=== PATIENT | female | born 1980 | race Two or more races ===

== ENCOUNTER 2025-07-17 12:54 | Emergency (ER) | payer BC, OTHER ==
[~2025-07-17] VITALS: Ht 157.5 cm; Wt 127.7 kg
[2025-07-17 13:38] LABS: Hematocrit 47.6 % (36.0-46.0); Hemoglobin 16.1 g/dL (12.2-16.2); Mean Corpuscular Hemoglobin 28.5 pg (28.0-32.0); Mean Corpuscular Volume 84.3 fL (80.0-100.0); Nucleated Red Blood Cells % 0.0 %
[2025-07-17 13:47] LABS: Chloride 104 mmol/L (98-107); Potassium 3.9 mmol/L (3.5-5.1); Sodium 140 mmol/L (136-145)
--- NOTE | 2025-07-17 13:47 | ED.PDOC ---
GI ASSESSMENT HPI Comments This is a 44 year old female presenting to the ED with chief complaint of abdominal pain. Patient reports that she has been dealing with treatment for a Bartholin cyst for the past month. Patient relays that she is still experiencing pain and bleeding at times to her cyst. Patient states that she then started experiencing an abscess to her suprapubic region a week ago, now healing after receiving Bactrim and Doxycycline. Patient notes since yesterday she has been experiencing sharp lower abdominal pain with associated nausea, sweats, SOB, fatigue, and increased vaginal pressure. Patient denies any vomiting, diarrhea, dysuria, hematuria, or vaginal bleeding. 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) Family History Family History: Reviewed,noncontributory to illness Social History Smoker: Non-Smoker Alcohol: Denies ETOH Use Drugs: Denies Drug Use Lives In: Home Constitutional: reports: fatigue, sweats; denies: chills, diaphoresis, fever, malaise, weakness, others EENTM: denies: blurred vision, double vision, ear bleeding, ear discharge, ear drainage, ear pain, ear ringing, eye pain, eye redness, hearing loss, mouth pain, mouth swelling, nasal discharge, nose bleeding, nose congestion, nose pain, photophobia, tearing, throat pain, throat swelling, voice changes, others Respiratory: reports: shortness of breath; denies: cough, hemoptysis, orthopnea, SOB at rest, SOB with excertion, stridor, wheezing, others Cardiovascular: denies: chest pain, dizzy spells, diaphoresis, Dyspnea on exertion, edema, irregular heart beat, left arm pain, lightheadedness, palpitations, PND, syncope, others Gastrointestinal: reports: abdominal pain, nausea, poor appetite; denies: abdomen distended, blood streaked bowels, constipated, diarrhea, dysphagia, difficulty swallowing, hematemesis, melena, poor fluid intake, rectal bleeding, rectal pain, vomiting, others Genitourinary: reports: others (Vaginal pressure); denies: abnormal vagina bleeding, burning, dyspareunia, dysuria, flank pain, frequency, hematuria, incontinence, pain, , vagina discharge, urgency Neurological: denies: dizziness, fainting, headache, left sided numbness, left sided weakness, numbness, paresthesia, pre-existing deficit, right sided numbness, right sided weakness, seizure, speech problems, tingling, tremors, weakness, others Musculoskeletal: denies: back pain, gout, joint pain, joint swelling, muscle pain, muscle stiffness, neck pain, others Integumetry: denies: bruises, change in color, change in hair/nails, dryness, laceration, lesions, lumps, rash, wounds, others Allergic/Immunocompromised: denies: Difficulty Healing, Frequent Infections, Hives, Itching, others Hematologic/Lymphatic: denies: anemia, blood clots, easy bleeding, easy bruising, swollen glands, others Endocrine: denies: excessive hunger, excessive sweating, excessive thirst, excessive urination, flushing, intolerance to cold, intolerance to heat, unexplained weight gain, unexplained weight loss, others Psychiatric: denies: anxiety, bipolar disorder, depression, hopeless, panic disorder, schizophrenia, sleepless, suicidal, others All Other Systems: Reviewed and Negative Physical Exam General Appearance: No Apparent Distress, Normal HEENT: Normal ENT Inspection, Pharynx Normal, TMs Normal Neck: Full Range of Motion, Non-Tender, Normal, Normal Inspection Respiratory: Chest Non-Tender, Lungs Clear, No Accessory Muscle Use, No Respiratory Distress, Normal Breath Sounds Cardiovascular: No Edema, No JVD, No Murmur, No Gallop, Normal Peripheral Pulses, Regular Rate/Rhythm Breast Exam: Deferred Gastrointestinal: No Organomegaly, Non Tender, No Pulsatile Mass, Normal Bowel Sounds, Soft Genitalia: Deferred Pelvic: Deferred Rectal: Deferred Extremities: No calf tenderness, Normal capillary refill, Normal inspection, Normal range of motion, Non-tender, No pedal edema Musculoskeletal : Apperance: Normal Neurologic: Alert, sanitarian inspector II-XII nml as Tested, No Motor Deficits, Normal Affect, Normal Mood, No Sensory Deficits Cerebellar Function: Normal Reflexes: Normal Skin: Dry, Normal Color, Warm Lymphatic: No Adenopathy Was a procedure done? Was a procedure done?: No GI differential Dx Differential Diagnosis: Missed , Angina/MN, Cholecystitis, Diverticular disease, Esophagitis, Gastritis/PUD, Gastroenteritis, UTI, Urolithiasis, Diabetes/ DKA X-Ray, Labs, Meds, VS Vital Signs Date Time Temp Pulse Resp B/P (MAP) Pulse Ox O2 Delivery O2 Flow Rate FiO2 07/17/25 15:08 77 17 143/77 07/17/25 14:46 94 Room Air* 0 21 07/17/25 14:45 97.9 83 17 128/91 (103) 94 97.9 07/17/25 13:02 97.5 95 16 139/100 96 97.5 Lab Test 07/17/25 14:15 07/17/25 13:24 Range/Units Lactic Acid Level 1.7 0.4-2.0 mmol/L White Blood Count 17.3 H 4.4-10.8 10^3/uL Red Blood Count 5.65 H 4.0-5.20 10^6/uL Hemoglobin 16.1 12.2-16.2 g/dL Hematocrit 47.6 H 36.0-46.0 % Mean Corpuscular Volume 84.3 80.0-100.0 fL Mean Corpuscular Hemoglobin 28.5 28.0-32.0 pg Mean Corpuscular Hemoglobin Concent 33.9 32.0-36.0 g/dL Red Cell Distribution Width 13.8 11.8-14.3 % Platelet Count 433 140-450 10^3/uL Mean Platelet Volume 7.6 6.9-10.8 fL Neutrophils (%) (Auto) 90.2 H 37.0-80.0 % Lymphocytes (%) (Auto) 7.3 L 10.0-50.0 % Monocytes (%) (Auto) 2.4 0.0-12.0 % Eosinophils (%) (Auto) 0.0 0.0-7.0 % Basophils (%) (Auto) 0.1 0.0-2.0 % Neutrophils # (Auto) 15.6 H 1.6-8.6 10 ^3/uL Lymphocytes # (Auto) 1.3 0.4-5.4 10 ^3/uL Monocytes # (Auto) 0.4 0-1.3 10 ^3/uL Eosinophils # (Auto) 0 0-0.8 10 ^3/uL Basophils # (Auto) 0 0-0.2 10 ^3/uL Nucleated Red Blood Cells 0.0 % Sodium Level 140 136-145 mmol/L Potassium Level 3.9 3.5-5.1 mmol/L Chloride Level 104 98-107 mmol/L Carbon Dioxide Level 23 20-31 mmol/L Anion Gap 13 5-15 Blood Urea Nitrogen 10 9-23 mg/dL Creatinine 1.13 H 0.550-1.02 mg/dL Glomerular Filtration Rate Calc 62 >90 mL/min BUN/Creatinine Ratio 8.8 L 10.0-20.0 Serum Glucose 109 H 74-106 mg/dL Calcium Level 9.5 8.7-10.4 mg/dL Current Medications Medications (Trade) Dose Ordered Sig/Shaila Route Start Time Stop Time Status Last Admin Sodium Chloride 1,000 ml @ 1,000 mls/hr Q1H ONCE IV 07/17/25 13:45 07/17/25 14:44 DC 07/17/25 15:09 Ondansetron HCl (Zofran) 4 mg ONCE ONCE IV 07/17/25 13:45 07/17/25 13:46 DC 07/17/25 15:08 Morphine Sulfate 4 mg ONCE ONCE IV 07/17/25 13:45 07/17/25 13:46 DC 07/17/25 15:08 Sodium Chloride 1,000 ml @ 1,000 mls/hr Q1H ONCE IV 07/17/25 14:15 07/17/25 15:14 DC 07/17/25 15:09 Cefepime HCl 50 ml @ 12.5 mls/hr ONCE ONCE IV 07/17/25 14:15 07/17/25 18:14 07/17/25 15:08 Time of 1ST Reevaluation: 14:20 Reevaluation 1ST: Unchanged Patient Education/Counseling: Diagnosis, Treatment Family Education/Counseling: No Family Present SEPSIS Sepsis Screen Date sepsis recognized/suspect: Jul 17, 2025 Time Sepsis recognized/suspect: 1302 Recent Procedure: No On Antibiotic Therapy: No Respiratory Rate >20: No Heart Rate >90: No Temp<36 C (96.8 F) or >38.3 C: No SBP <90 or MAP <65 mmHG: No New Acute Mental Status Change: No Is the patient on CPAP, BIPAP,: No Physician Orders Urinalysis (07/17/25 13:17) Ct Ab Pel With Iv Con Only (07/17/25 13:31) Blood Culture (07/17/25 14:04) Cefepime 2gm/50ml Ns (Maxipime 2gm/50ml) (07/17/25 14:15) Vital Signs Date Time Temp Pulse Resp B/P (MAP) Pulse Ox O2 Delivery O2 Flow Rate FiO2 07/17/25 15:08 77 17 143/77 07/17/25 14:46 94 Room Air* 0 21 07/17/25 14:45 97.9 83 17 128/91 (103) 94 97.9 07/17/25 13:02 97.5 95 16 139/100 96 97.5 Laboratory Tests Test 07/17/25 13:24 07/17/25 14:15 White Blood Count 17.3 10^3/uL (4.4-10.8) H Lactic Acid Level 1.7 mmol/L (0.4-2.0) Medications Medications Dose Ordered Sig/Shaila Route Start Time Stop Time Status Last Admin Dose Admin Cefepime HCl 50 ml @ 12.5 mls/hr ONCE ONCE IV 07/17/25 14:15 07/17/25 18:14 07/17/25 15:08 Morphine Sulfate 4 mg ONCE ONCE IV 07/17/25 13:45 07/17/25 13:46 DC 07/17/25 15:08 Ondansetron HCl 4 mg ONCE ONCE IV 07/17/25 13:45 07/17/25 13:46 DC 07/17/25 15:08 Sodium Chloride 1,000 ml @ 1,000 mls/hr Q1H ONCE IV 07/17/25 13:45 07/17/25 14:44 DC 07/17/25 15:09 Sodium Chloride 1,000 ml @ 1,000 mls/hr Q1H ONCE IV 07/17/25 14:15 07/17/25 15:14 DC 07/17/25 15:09 Departure 1 Departure Time of Disposition: 15:57 (Patiets workup is benign. 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 You were prescribed antibiotics, pain medications, and nausea medications. You were referred to OB. Please call for an appointment this week. e-Prescriptions Ondansetron Odt 4MG Tab (ZOFRAN PO) 4 Mg Tb 4 MG PO TID PRN for 5 Days, #15 TAB ODT TAB-DISSOLVE IN MOUTH, THEN SWALLOW Prov: KAIT VILLAFANA MD 07/17/25 Hydrocodone-Acetaminophen (Hydrocodone Bitartrate/AC 5-325 mg) 1 Tab Tab 1 TAB PO TID PRN for 5 Days, #15 TAB Prov: KAIT VILLAFANA MD 07/17/25 Levofloxacin Hemihydrate (LEVAQUIN 500 MG) 500 Mg Tab 500 MG PO DAILY for 7 Days, #7 TAB Prov: KAIT VILLAFANA MD 07/17/25 Critical Care Note Critical Care Time?: No Stability Stability form required: No Heart Score Heart Score: Heart Score Response (Comments) Value History N/A 0 EKG N/A 0 Age N/A 0 Risk Factors N/A 0 Troponin N/A 0 Total 0 I personally scribed for KAIT VILLAFANA MD ([email or web address]) on 07/17/25 at 13:47. Electronically submitted by Suraj Gatica ([email or web address]). KAIT VILLAFANA MD Jul 17, 2025 13:47
[2025-07-17 13:48] LABS: Anion Gap 13 (5-15); Carbon Dioxide 23 mmol/L (20-31)
[2025-07-17 13:49] LABS: Calcium 9.5 mg/dL (8.7-10.4)
[2025-07-17 13:53] LABS: BUN/Creatinine Ratio 8.8 (10.0-20.0); Blood Urea Nitrogen 10 mg/dL (9-23)
[2025-07-17 13:54] LABS: Glucose 109 mg/dL (74-106)
[2025-07-17] MEDS: MORPHINE SULFATE 4 MG/ML SYR/VIAL IV ONE (15:08)
[2025-07-17] MEDS: ONDANSETRON HCL 4 MG/2 ML VIAL IV ONE (15:08)
[2025-07-17] MEDS: CEFEPIME 2GM/50ML NS 50 ML IV ONE (15:08)
[2025-07-17] MEDS: SODIUM CHLORIDE 0.9% 1,000 ML IV ONE ×2 (15:09)
--- NOTE | 2025-07-17 15:38 | DVH ---
EXAM DESCRIPTION: CT CT AB PEL WITH IV CON ONLY CLINICAL HISTORY: abdominal pain, vaginal pain COMPARISON: None TECHNIQUE: CT abdomen and pelvis with IV contrast was performed. Coronal and sagittal MPR images were generated. CTDI, DLP = 25.55 / 1414.82 Dose reduction technique with one or more of the following methods was performed: Automated exposure control, adjustment of the mA and/or kV according to patient size, use of iterative reconstruction technique FINDINGS: Lower chest: Clear lung bases. Liver: Homogenous in attenuation. . Biliary: Status post cholycystectomy. No biliary ductal dilatation. Pancreas: No fat stranding or focal lesion. Spleen: Normal in size.. Adrenal glands: No nodularity. Kidneys: Symmetric enhancement. No hydroureteronephrosis. . Bladder: Underdistended, limiting evaluation. Reproductive organs: Status post hysterectomy. 2.7 cm right adnexal cyst. Bowel: No bowel wall thickening or dilatation. Normal appendix. Peritoneum: No free fluid. No free air. Vessels: Normal caliber abdominal aorta. Lymph nodes: No suspicious lymph nodes. Soft tissues: Unremarkable. . Osseous structures: No acute fracture or subluxation. No suspicious osseous lesions. IMPRESSION: 1. No acute abnormality within the abdomen or pelvis. 2. Status post hysterectomy with a 2.7 cm right adnexal cyst. Consider further evaluation pelvic ultrasound.
[2025-07-17] MEDS ORDERED: LEVO500T91 PO (16:01)
[2025-07-17] MEDS ORDERED: ZOFR4T PO (16:06)
[2025-07-17] MEDS ORDERED: HYDR-4902 PO (16:06)
[2025-07-17] MEDS: ONDANSETRON ODT 4 MG TAB PO ONE (17:28)
[2025-07-17] MEDS: HYDROcodone-ACET 5/325MG TAB PO ONE (17:28)
[2025-07-17 19:00] VITALS: BP 140/61; PULSE 63; RESP 18; TEMP 98.3; O2SAT 97
== END 2025-07-17 19:06 | disposition home or self-care (01) ==
LOC: ER 12:54
DX: K65.1 Peritoneal abscess (principal); Z90.710 Acquired absence of both cervix and uterus
CPT/HCPCS: 36415; 74177; 80048; 83605; 85025; 87040; 96365; 96375; 99285; J0692; J2270; J2405; J7030; Q0162; Q9967